=== PATIENT | male | born 1990 | race Caucasian/White ===

== ENCOUNTER 2017-01-17 09:54 | Emergency (ER) | payer OTHER ==
[~2017-01-17] VITALS: Ht 185.4 cm; Wt 161.3 kg
[2017-01-17 09:55] VITALS: TEMP 36.7; Ht 185.4 cm; Wt 161.3 kg
--- NOTE | 2017-01-17 10:27 | EMERGENCY ROOM VISIT NOTE ---
ED Visit Note First contact with patient: 10:03 CHIEF COMPLAINT: Foot pain HISTORY OF PRESENT ILLNESS: This 27-year-old male patient presents to the emergency department ambulatory complaining of swelling and pain in the right foot at rest and worse with weight bearing. 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 The patient complains of pain along the right side of the foot and into the ankle. The patient rates the pain as sharp and 1/10. The patient has no relief of the pain. The patient is able to walk. No numbness or weakness. No ankle pain. The patient is able to move all of their toes and their ankle without pain. Patient denies previous injury to this foot. The patient states his tetanus shot is up-to-date. REVIEW OF SYSTEMS: GENERAL: A 6 system review of systems was completed with positives and pertinent negatives in the HPI. ALLERGIES: No known drug allergies MEDICATIONS: Patient denies PMH: Patient denies SOCIAL HISTORY: The patient is employed. PHYSICAL EXAM: Vital Signs: Reviewed Nurse's notes, vital signs stable. GENERAL : This is a 27-year-old male, in no acute distress, but appears in pain, well- developed, well-nourished. MUSCULOSKELETAL: There is no visual deformity of the right foot. There is no erythema no ecchymosis. There is no warmth. There is tenderness and swelling over the lateral aspect of the right foot. The range of motion of the foot is minimally limited secondary to pain. There is no tenderness over the plantar fascia. Dorsi flexion 5/5 and Plantar flexion 5/5. There is a superficial abrasion and very superficial skin avulsion with no active bleeding and no significant laceration. Dorsalis pedis pulse 2+. Capillary refill less than 2 seconds. EMERGENCY DEPARTMENT COURSE: I examined the patient. An X-ray of the right ankle and foot were reviewed by myself and radiology and reveals no fracture or dislocation. The patient was placed in a post-op shoe and declined crutches. The patient should be off work until Saturday as he is required to wear work boots while on duty. He should follow-up with orthopedics or an employer proved Worker's Compensation doctor on Saturday for recheck and clearance to full duty. The patient was discharged home in good condition. RIGHT ANKLE MIN 3 VIEWS ROUTINE CLINICAL HISTORY: Right ankle pain status post trauma COMPARISON: None. DISCUSSION: No fractures or dislocations are visualized. The ankle mortise appears intact on these nonstress views. IMPRESSION: No fractures or dislocations identified. RIGHT FOOT MIN 3 VIEWS ROUTINE CLINICAL HISTORY: fall, right foot pain Right trauma. Pain. COMPARISON: None. DISCUSSION: The bones and joint spaces appear intact. There is no evidence of fracture, dislocation or bony disease. There is no evidence for soft tissue swelling. IMPRESSION: Negative study. Current/Historical Medications No Active Prescriptions or Reported Meds Allergies Coded Allergies: No Known Allergies (Unverified , 01/17/17) Vital Signs Date Time Temp Pulse Resp B/P (MAP) Pulse Ox O2 Delivery O2 Flow Rate FiO2 01/17/17 11:29 88 18 148/90 96 01/17/17 09:55 36.7 96 18 137/81 97 Room Air Departure Information Impression Primary Impression: Foot sprain Additional Impressions: Foot abrasion Work related injury Dispostion Home / Self-Care Condition GOOD Prescriptions No Active Prescriptions or Reported Meds Referrals No Doctor, Assigned (PCP) Forms HOME CARE DOCUMENTATION FORM, IMPORTANT VISIT INFORMATION, Work Instructions Additional Instructions: Off work until 01/21/2017 with recheck on 01/21. Patient Instructions ED Sprain Foot, [facility] Additional Instructions Ice and elevation over the next 24-48 hours Ibuprofen 600 mg every 6-8 hours or moderate pain Wear the postop shoe when up and about Off work this and recheck with orthopedics or an employer approved Worker's Compensation doctor on Saturday for recheck and return to full duty Return with any worsening symptoms Problem Qualifiers Primary Impression: Foot sprain Encounter type: initial encounter Laterality: right Qualified Codes: S93.601A - Unspecified sprain of right foot, initial encounter
--- NOTE | 2017-01-17 10:42 | DIAGNOSTIC IMAGING REPORT ---
RIGHT ANKLE MIN 3 VIEWS ROUTINE CLINICAL HISTORY: Right ankle pain status post trauma COMPARISON: None. DISCUSSION: No fractures or dislocations are visualized. The ankle mortise appears intact on these nonstress views. IMPRESSION: No fractures or dislocations identified. Electronically signed by: Matthew Velasquez M.D. 01/17/2017 10:41 AM Dictated Date/Time: 01/17/2017 10:40 AM
--- NOTE | 2017-01-17 10:46 | DIAGNOSTIC IMAGING REPORT ---
RIGHT FOOT MIN 3 VIEWS ROUTINE CLINICAL HISTORY: fall, right foot pain Right trauma. Pain. COMPARISON: None. DISCUSSION: The bones and joint spaces appear intact. There is no evidence of fracture, dislocation or bony disease. There is no evidence for soft tissue swelling. IMPRESSION: Negative study. Electronically signed by: Ryan Blackwell M.D. 01/17/2017 10:45 AM Dictated Date/Time: 01/17/2017 10:44 AM
[2017-01-17 11:29] VITALS: BP 148/90; PULSE 88; O2SAT 96
== END 2017-01-17 11:30 | disposition home or self-care (01) ==
LOC: C.EDB 09:56 → C.EDA 11:30
DX: S93.601A Unspecified sprain of right foot, initial encounter (principal); S90.811A Abrasion, right foot, initial encounter; V97.1XXA Person injured while boarding or alighting from aircraft, initial encounter; Y99.0 Civilian activity done for income or pay